=== PATIENT | female | born 1990 | race Caucasian/White ===

== ENCOUNTER 2022-03-18 08:59 | Inpatient (IN) | payer OTHER ==
[~2022-03-18 08:59] MED LIST: COLACE 100MG C100 MG PO
[2022-03-18 10:14] LABS: HEMOGLOBIN 11.9 gm/dl (12.3-15.3); RED BLOOD COUNT 4.08 M/UL (4.00-5.10); WHITE BLOOD COUNT 8.1 K/UL (4.5-11.0)
[2022-03-18] MEDS ORDERED: COLACE 100MG C100 MG PO (12:05)
[2022-03-18] MEDS ORDERED: IBUPROFEN800 MG PO (12:05)
[2022-03-18] MEDS ORDERED: HYDROCODON-ACE1 EAC4 PO (12:05)
[2022-03-18 13:17] LABS: BUN/CREATININE RATIO 12 (0-10)
[2022-03-19 05:55] LABS: HEMOGLOBIN 10.7 gm/dl (12.3-15.3)
== END 2022-03-19 18:48 | disposition home or self-care (01) | DRG 807 ==
LOC: GENOP 08:59 → OB 09:44
PROVIDERS: ADMIT Obstetrics & Gynecology
PROC: 3E0234Z Introduction of Serum, Toxoid and Vaccine into Muscle, Percutaneous Approach (ICD-10-PCS; principal; 2022-03-18)
PROC: 10E0XZZ Delivery of Products of Conception, External Approach (ICD-10-PCS; principal; 2022-03-18)
PROC: 4A1HXCZ Monitoring of Products of Conception, Cardiac Rate, External Approach (ICD-10-PCS; principal; 2022-03-18)
PROC: 0KQM0ZZ Repair Perineum Muscle, Open Approach (ICD-10-PCS; principal; 2022-03-18)
PROC: 10907ZC Drainage of Amniotic Fluid, Therapeutic from Products of Conception, Via Natural or Artificial Opening (ICD-10-PCS; principal; 2022-03-18)
DX: O70.1 Second degree perineal laceration during delivery (principal); Z37.0 Single live birth; Z3A.39 39 weeks gestation of pregnancy; O62.2 Other uterine inertia; Z91.040 Latex allergy status; Z82.49 Family history of ischemic heart disease and other diseases of the circulatory system; Z80.9 Family history of malignant neoplasm, unspecified; Z83.79 Family history of other diseases of the digestive system; Z83.2 Family history of diseases of the blood and blood-forming organs and certain disorders involving the immune mechanism; Z23 Encounter for immunization
CPT/HCPCS: 36415; 80053; 81001; 82800; 83615; 84550; 85014; 85018; 85025; 90715; J2590; J3010